=== PATIENT | male | born 1955 | race Caucasian/White ===

== ENCOUNTER 2016-05-30 10:02 | Day surgery (SDC) | payer MEDICARE ==
[2016-05-30] MEDS ORDERED: IV START KIT ONE (10:27)
[2016-05-30] MEDS ORDERED: LACTATED RINGERS 1,000 ML IV SCH (10:30)
[2016-05-30] MEDS ORDERED: PROPOFOL 20 ML IV ONE (11:53)
[2016-05-30 16:32] LABS: HELICOBACTER PYLORII DETECTION NEGATIVE (NEGATIVE)
--- NOTE | 2016-06-02 09:38 | SURGPATH ---
[facility] [address] [place] [id number] Patient Name: NICK CANTU MR#: [id number] : 1955 Gender: M Specimen #: [id number] Collected: 05/30/2016 Received: 06/01/2016 Reported: 06/02/2016 Submitting Phys: SOPHIA PETERSON Copy To Phys: [facility] - HIM Clinical History / Pre-Operative Diagnosis: DYSPHAGIA Specimen Source / Surgical Procedure Performed: #1-DUODENAL BIOPSY; #2-ANTRAL BIOPSY Interpretation: 1, 2. DUODENUM, GASTRIC ANTRUM, BIOPSY: - NO PATHOLOGIC DIAGNOSIS Electronically Signed Out Colin Morley M.D. Gross Description: #1 The specimen is received in a formalin filled container labeled with the patient's name and "duodenal biopsy". A single john biopsy is 0.4 cm. Totally embedded in cassette #1. #2 The specimen is received in a formalin filled container labeled with the patient's name and "antral biopsy". A single john biopsy is 0.5 cm. Totally embedded in cassette #2. Nat Castro Microscopic Description: 1. Levels reveal small intestinal mucosa with a normal villous architecture. Ulceration, acute inflammation, granulomas, intraepithelial lymphocytosis, Giardia organisms, dysplasia and malignancy are not seen. 2. Levels reveal gastric mucosa with an unremarkable architecture and few chronic inflammatory cells in the lamina propria. Ulceration, acute inflammation, intestinal metaplasia, Helicobacter organisms, dysplasia and malignancy are not present. 1: [id number] 2: 02395 R13.19
== END 2016-05-30 12:51 | disposition home or self-care (01) ==
LOC: SDC 10:02
PROVIDERS: ATTEND Family Medicine
PROC: 0DB98ZX Excision of Duodenum, Via Natural or Artificial Opening Endoscopic, Diagnostic (ICD-10-PCS; principal; 2016-05-30)
PROC: 0DB68ZX Excision of Stomach, Via Natural or Artificial Opening Endoscopic, Diagnostic (ICD-10-PCS; 2016-05-30)
DX: R13.14 Dysphagia, pharyngoesophageal phase (principal); R09.02 Hypoxemia; I10 Essential (primary) hypertension; E78.1 Pure hyperglyceridemia; I70.90 Unspecified atherosclerosis; N40.0 Benign prostatic hyperplasia without lower urinary tract symptoms; K57.30 Diverticulosis of large intestine without perforation or abscess without bleeding; F41.1 Generalized anxiety disorder; E03.9 Hypothyroidism, unspecified; F17.200 Nicotine dependence, unspecified, uncomplicated; Z80.9 Family history of malignant neoplasm, unspecified; Z82.49 Family history of ischemic heart disease and other diseases of the circulatory system
CPT/HCPCS: 87081; 43239; J7120